=== PATIENT | male | born 1990 | race Caucasian/White ===

== ENCOUNTER 2019-07-21 05:29 | Emergency (ER) | payer SELFPAY ==
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
[2019-07-21] MEDS ORDERED: IBUPROFEN 400 MG TAB ONE (06:25)
[2019-07-21] MEDS ORDERED: TETANUS & DIPHTHERIA TOX,ADULT 0.5 ML VIAL ONE (06:26)
[2019-07-21 06:39] VITALS: BP 138/87; TEMP 97.7; O2SAT 99
== END 2019-07-21 06:35 | disposition home or self-care (01) ==
LOC: ER 05:29
DX: S00.81XA Abrasion of other part of head, initial encounter (principal); S50.812A Abrasion of left forearm, initial encounter; S50.811A Abrasion of right forearm, initial encounter; S20.319A Abrasion of unspecified front wall of thorax, initial encounter; Y09 Assault by unspecified means; Y93.9 Activity, unspecified; Y92.89 Other specified places as the place of occurrence of the external cause; Z23 Encounter for immunization; F17.290 Nicotine dependence, other tobacco product, uncomplicated
CPT/HCPCS: 90471; 90714; 99284

== ENCOUNTER 2023-05-08 14:52 | Emergency (ER) | payer SELFPAY ==
[2023-05-08 16:13] LABS: Absolute Lymphocytes (CBC) 1.4 K/uL (0.7-4.9); Hematocrit 43.6 % (39.6-49.0); Lymphocytes % 21.6 % (15.3-44.8); MCV 85.6 fL (80-100); MPV 9.4 fL (7.6-11.3); Platelets 247 thou/uL (152-406); RBC Red Blood Cell Count 5.09 M/uL (4.33-5.43)
--- NOTE | 2023-05-08 16:29 | RAD REPORT ---
EXAM DESCRIPTION: RAD - Knee Right 3 View - 05/08/2023 3:53 pm CLINICAL HISTORY: PAIN COMPARISON: No comparisons TECHNIQUE: Right knee, 3 views. FINDINGS: No fracture, dislocation or periosteal reaction.No joint effusion seen. No joint space manjula rowing. No soft tissue abnormality. Clinical concerns for internal derangement or occult bony injury could be further assessed with MR im aging. IMPRESSION: Negative right knee.
--- NOTE | 2023-05-08 16:29 | RAD REPORT ---
EXAM DESCRIPTION: RAD - Knee Left 3 View - 05/08/2023 3:53 pm CLINICAL HISTORY: PAIN COMPARISON: No comparisons TECHNIQUE: Left knee, 3 views. FINDINGS: No fracture, dislocation or periosteal reaction.No joint effusion seen. Incidentally noted fabella. No joint space narrowing. No soft tissue abnormality. Clinical concerns for internal derangement or occult bony injury could be further assessed with MR im aging. IMPRESSION: Negative left knee.
[2023-05-08 16:50] LABS: Potassium 3.7 mEq/L (3.5-5.1); Thyroid Stimulating Hormone 0.535 uIU/mL (0.358-3.740)
[2023-05-08] MEDS ORDERED: INSULIN -REGULAR HUMAN 50 UNIT/0.5 ML ML ONE (17:32)
[2023-05-08] MEDS ORDERED: NA CHLORIDE 0.9% 1,000 ML ONE (17:32)
--- NOTE | 2023-05-08 17:44 | ER ---
Nurse's Notes [facility] Name: Cheng Ramey Age: 32 yrs Sex: Male : 1990 Arrival Date: 05/08/2023 Time: 14:52 Bed 16 Private MD: Diagnosis: Diabetes mellitus due to underlying condition with hyperglycemia Presentation: 05/08 15:21 Chief complaint: Patient states: Fall on Sunday, co ann marie knee pain. Right knee hurts nj1 more than left since he fell on right knee. Coronavirus screen: Vaccine status: Patient reports receiving the 2nd dose of the covid vaccine. Ebola Screen: Patient denies travel to an Ebola-affected area in the 21 days before illness onset. Initial Sepsis Screen: Does the patient meet any 2 criteria? No. Patient's initial sepsis screen is negative. Initial Sepsis Screen: Does the patient have a suspected source of infection? No. Patient's initial sepsis screen is negative. Risk Assessment: Do you want to hurt yourself or someone else? Patient reports no desire to harm self or others. Onset of symptoms was May 05, 2023. 15:21 Method Of Arrival: Ambulatory [facility] 15:21 Acuity: HAILEY 3 nj1 Historical: - Allergies: 15:27 No Known Allergies; nj1 - PMHx: 15:27 None; nj1 - PSHx: 15:27 None; nj1 - Immunization history:: Client reports receiving the 2nd dose of the Covid vaccine. - Social history:: Smoking status: Reported history of juuling and/or vaping. - Family history:: not pertinent. - Hospitalizations: : No recent hospitalization is reported. Screenin:47 [facility] ED Fall Risk Assessment (Adult) History of falling in the last 3 months, kc6 including since admission Yes- single mechanical fall (1 pt) Confusion or Disorientation No (0 pts) Intoxicated or Sedated No (0 pts) Impaired Gait No (0 pts) Mobility Assist Device Used No (0 pt) Altered Elimination No (0 pt) Score/Fall Risk Level 0 - 2 = Low Risk. Abuse screen: Denies threats or abuse. Denies injuries from another. Nutritional screening: No deficits noted. Tuberculosis screening: No symptoms or risk factors identified. Assessment: 16:51 General: Appears in no apparent distress. comfortable, Behavior is calm, cooperative, kc6 appropriate for age. Pain: Complains of pain in right leg and left leg. Neuro: Level of Consciousness is awake, alert, obeys commands, Oriented to person, place, time, situation, Appropriate for age. Cardiovascular: Capillary refill < 3 seconds. Respiratory: Airway is patent Trachea midline Respiratory effort is even, unlabored, Respiratory pattern is regular, symmetrical. GI: No signs and/or symptoms were reported involving the gastrointestinal system. : Reports urinary frequency. EENT: No signs and/or symptoms were reported regarding the EENT system. Derm: No signs and/or symptoms reported regarding the dermatologic system. Skin is intact, is healthy with good turgor, Skin is pink, warm \T\ dry. Musculoskeletal: No signs and/or symptoms reported regarding the musculoskeletal system. Circulation, motion, and sensation intact. Capillary refill < 3 seconds, Range of motion: intact in all extremities. 17:43 Reassessment: d/c pending IV fluid completion and BGL recheck. kc6 Vital Signs: 15:21 BP 141 / 87; Pulse 79; Resp 17; Temp 98.2(TE); Pulse Ox 100% on R/A; Weight 93.44 kg; nj1 Height 5 ft. 6 in. ; Pain 5/10; 16:51 BP 118 / 80; Pulse 80; Resp 17 S; Pulse Ox 99% on R/A; kc6 15:21 Body Mass Index 33.25 (93.44 kg, 167.64 cm) nj1 15:21 Pain Scale: Adult [facility] ED Course: 14:57 Patient arrived in ED. im 15:05 Demond Garcia MD is Attending Physician. rn 15:20 Juana Cooper RN is Primary Nurse. nj1 15:27 Triage completed. nj1 15:28 Arm band placed on right wrist. nj1 15:55 XRAY Knee RIGHT 3 view In Process Unspecified. EDMS 15:55 XRAY Knee LEFT 3 view In Process Unspecified. EDMS 16:04 T4 Free Sent. bc6 16:04 TSH Sent. bc6 16:04 Basic Metabolic Panel Sent. bc6 16:04 CBC with Diff Sent. bc6 16:04 Inserted saline lock: 20 gauge in left antecubital area, using aseptic technique. Blood bc6 collected. 16:44 Tia Amanda, CAMI is Primary Nurse. kc6 16:47 Patient has correct armband on for positive identification. Bed in low position. Call kc6 light in reach. Side rails up X 1. Adult w/ patient. Administered Medications: 17:26 Drug: NS 0.9% IV 1000 ml Route: IV; Rate: 1000 ml; Site: left antecubital; kc6 18:13 Follow up: Response: No adverse reaction; IV Status: Completed infusion; IV Intake: kc6 1000ml 17:26 Drug: Insulin Regular Human Sub-Q 10 units {Co-Signature: db (Urvashi Costa RN).} kc6 Route: Sub-Q; Site: left upper arm; 18:13 Follow up: Response: No adverse reaction; Blood sugar is lowered kc6 Intake: 18:13 IV: 1000ml; Total: 1000ml. kc6 Outcome: 17:43 Discharge ordered by . rn 18:14 Patient left the ED. kc6 Signatures: Dispatcher [employer] Demond Llanos MD MD rn Campbell, Kaitlyn, RN RN kc6 Nika Hook [facility] Juana Cooper RN RN nj1 Leona Johnson Danielle RN db
--- NOTE | 2023-05-08 17:44 | EDPHYS ---
Physician Documentation [facility] Name: Cheng Ramey Age: 32 yrs Sex: Male : 1990 Arrival Date: 05/08/2023 Time: 14:52 Bed 16 Private MD: ED Physician Demond Garcia HPI: 05/08 16:20 This 32 yrs old Male presents to ER via Ambulatory with complaints of Fall Injury - on rn 05/05, Leg Pain, Knee Pain. 16:20 Details of fall: The patient fell from an upright position, while walking. Onset: The rn symptoms/episode began/occurred 3 day(s) ago. Associated injuries: The patient sustained bilateral knees. Severity of symptoms: At their worst the symptoms were moderate, in the emergency department the symptoms have improved. The patient has not experienced similar symptoms in the past. The patient has not recently seen a physician. Pt reports fall while walking down steps a few days ago, landed on both knees, pain improving and doesn't feel like they are broken but wanted to be evaluated. Also reports generalized weakness and "legs give out", for months, no paralysis, is what caused his fall. Also reports unintentional weight loss. . Historical: - Allergies: 15:27 No Known Allergies; nj1 - PMHx: 15:27 None; nj1 - PSHx: 15:27 None; nj1 - Immunization history:: Client reports receiving the 2nd dose of the Covid vaccine. - Social history:: Smoking status: Reported history of juuling and/or vaping. - Family history:: not pertinent. - Hospitalizations: : No recent hospitalization is reported. ROS: 16:20 Constitutional: Negative for fever, chills, + weight loss Eyes: Negative for injury, rn pain, redness, and discharge, Cardiovascular: Negative for chest pain, palpitations, and edema, Respiratory: Negative for shortness of breath, cough, wheezing, and pleuritic chest pain, Abdomen/GI: Negative for abdominal pain, nausea, vomiting, diarrhea, and constipation, MS/Extremity: + knee pain bilaterally with injury Skin: Negative for injury, rash, and discoloration, Neuro: Negative for headache, focal weakness, numbness, tingling, and seizure. Exam: 16:20 Constitutional: This is a well developed, well nourished patient who is awake, alert, rn and in no acute distress. Head/Face: Normocephalic, atraumatic. Cardiovascular: Regular rate and rhythm. No pulse deficits. Respiratory: No increased work of breathing, no retractions or nasal flaring. Skin: Warm, dry MS/ Extremity: Pulses equal, no cyanosis. Neurovascular intact. Mild painful ROM right knee with minimal swelling. Neuro: Awake and alert, GCS 15, oriented to person, place, time, and situation. Cranial nerves II-XII grossly intact. Motor strength 5/5 in all extremities. Sensory grossly intact. Cerebellar exam normal. Vital Signs: 15:21 BP 141 / 87; Pulse 79; Resp 17; Temp 98.2(TE); Pulse Ox 100% on R/A; Weight 93.44 kg; nj1 Height 5 ft. 6 in. ; Pain 5/10; 16:51 BP 118 / 80; Pulse 80; Resp 17 S; Pulse Ox 99% on R/A; kc6 15:21 Body Mass Index 33.25 (93.44 kg, 167.64 cm) nj1 15:21 Pain Scale: Adult nj1 MDM: 15:05 Patient medically screened. rn 17:23 Differential diagnosis: contusion, sprain. rn 17:23 Data reviewed: vital signs, nurses notes, lab test result(s), radiologic studies, plain rn films, and as a result, I will discharge patient. Counseling: I had a detailed discussion with the patient and/or guardian regarding: the historical points, exam findings, and any diagnostic results supporting the discharge/admit diagnosis, lab results, radiology results, the need for outpatient follow up, to return to the emergency department if symptoms worsen or persist or if there are any questions or concerns that arise at home. Response to treatment: the patient's symptoms have mildly improved after treatment, and as a result, I will discharge patient. Special discussion: I discussed with the patient/guardian in detail that at this point there is no indication for admission to the hospital. It is understood, however, that if the symptoms persist or worsen the patient needs to return immediately for re-evaluation. 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 ED course: Negative xrays of knees. + likely new onset diabetic and has been for sometime given length of time he has not felt well. Will give fluids and insulin here, and dc home on metformin with pcp f/u. Plans to make appt with [facility]. . 05/08 15:28 Order name: CBC with Diff; Complete Time: 16:50 rn 05/08 15:28 Order name: Basic Metabolic Panel; Complete Time: 17:00 rn 05/08 15:28 Order name: TSH; Complete Time: 17:00 rn 05/08 15:28 Order name: T4 Free; Complete Time: 17:00 rn 05/08 16:19 Order name: Glucose, Ancillary Testing; Complete Time: 16:50 EDMS 05/08 15:28 Order name: XRAY Knee RIGHT 3 view; Complete Time: 16:50 rn 05/08 15:28 Order name: XRAY Knee LEFT 3 view; Complete Time: 16:50 rn 05/08 15:28 Order name: IV Start; Complete Time: 16:04 rn 05/08 15:28 Order name: Glucose Level; Complete Time: 16:09 rn Administered Medications: 17:26 Drug: NS 0.9% IV 1000 ml Route: IV; Rate: 1000 ml; Site: left antecubital; kc6 18:13 Follow up: Response: No adverse reaction; IV Status: Completed infusion; IV Intake: kc6 1000ml 17:26 Drug: Insulin Regular Human Sub-Q 10 units {Co-Signature: joel (Urvashi Costa RN).} kc6 Route: Sub-Q; Site: left upper arm; 18:13 Follow up: Response: No adverse reaction; Blood sugar is lowered kc6 Disposition Summary: 05/08/23 17:43 Discharge Ordered Location: Home rn Problem: an ongoing problem rn Symptoms: have improved rn Condition: Stable rn Diagnosis - Diabetes mellitus due to underlying condition with hyperglycemia rn Followup: rn - With: Private Physician - When: As needed - Reason: Recheck today's complaints, Re-evaluation by your physician Discharge Instructions: - Discharge Summary Sheet rn - Diabetes Mellitus and Sick Day Management rn - Hyperglycemia rn - Blood Glucose Monitoring, Adult rn Forms: - Medication Reconciliation Form rn - Thank You Letter rn - Antibiotic creative intern - Prescription Opioid Use rn - Patient Portal Instructions rn Prescriptions: - Metformin 500 mg Oral Tablet - take 1 tablet by ORAL route once daily for 7 days Then take 1 tablet with rn morning meals AND evening meals; 60 tablet; Refills: 0, Product Selection Permitted Signatures: Dispatcher [employer] Demond Llanos MD MD rn Campbell, Kaitlyn, RN RN kc6 Juana Cooper RN RN nj1 Urvashi Costa RN db
[2023-05-08 18:32] VITALS: TEMP 98.2
[2023-05-08 18:37] VITALS: BP 118/80; O2SAT 99
== END 2023-05-08 18:14 | disposition home or self-care (01) ==
LOC: ER 14:52
DX: E11.65 Type 2 diabetes mellitus with hyperglycemia (principal); M25.562 Pain in left knee; M25.561 Pain in right knee
CPT/HCPCS: 36415; 80048; 82947; 84439; 84443; 85025; J1815; J7030